=== PATIENT | male | born 1955 | race Two or more races ===

== ENCOUNTER 2024-06-02 12:37 | Emergency (ER) | payer MEDICARE, SELFPAY ==
[2024-06-02 12:53] VITALS: BP 126/67; PULSE 100; RESP 18; TEMP 37; O2SAT 97; BMI 25.8
--- NOTE | 2024-06-02 13:01 | XR_ITS ---
Examination: Foot, right, 3 views Technique: AP, oblique, lateral views foot, 3 views Date and time of exam: June 02, 2024 1325 hours INDICATIONS: Redness swelling and pain involving the right first and fifth digits 2 weeks, diabetic history FINDINGS: Soft tissue swelling and air density surrounding the proximal phalanx fifth digit Suspicious for early cortical bone destruction involving the shaft of the proximal phalanx fifth digit IMPRESSION: Early osteomyelitis proximal phalanx fifth digit, consider MRI foot without contrast follow-up
--- NOTE | 2024-06-02 13:02 | PD.EDRME ---
Rapid Medical Screening Exam RME Arrival date/time: 06/02/24 12:37 68-year-old male with past medical history diabetes hypertension and amputations presents to the emergency department reporting was sent by primary care provider for evaluation of right foot infection. Chief Complaint: Ankle/Foot Injury Vital signs: Vital Signs Temperature 98.6 F 06/02/24 12:53 Pulse Rate 100 06/02/24 12:53 Respiratory Rate 18 06/02/24 12:53 Blood Pressure 126/67 06/02/24 12:53 Pulse Oximetry (%) 97 06/02/24 12:53 Oxygen Delivery Method Room Air 06/02/24 12:53
[2024-06-02 13:27] LABS: Basophils % (Auto) 0 % (0-2.5); Eosinophils # (Auto) 0.1 Thou/mm3 (0.0-0.5); Eosinophils % (Auto) 1 % (0-10); Hematocrit 32.8 % (41.0-53.0); Hemoglobin 11.1 g/dL (13.5-16.0); Immature Granulocytes % (Auto) 0 % (0-0); Immature Granulocytes Auto 0.05 Thou/mm3 (0.00-0.00); Lymphocytes # (Auto) 1.5 Thou/mm3 (1.0-4.8); Lymphocytes % (Auto) 11 % (10-50); Mean Corpuscular HGB Conc 33.8 g/dl (31.0-37.0); Mean Corpuscular Hemoglobin 26.4 pg (25.0-35.0); Mean Corpuscular Volume 78 fL (80-100); Monocytes # (Auto) 1.1 Thou/mm3 (0.0-0.8); Monocytes % (Auto) 8 % (0-12); Neutrophils # (Auto) 11.2 Thou/mm3 (1.8-7.7); Neutrophils % (Auto) 80 % (37-80); Nucleated Red Blood Cell % 0 /100 WBC (0); Platelet Count 521 Thou/mm3 (140-440); RDW Standard Deviation 39.9 fL (35.1-43.9); Red Blood Count 4.21 Miln/mm3 (4.50-5.90)
[2024-06-02 13:46] LABS: Glucose Estimated Average 171 mg/dL (80-131); Hemoglobin A1C 7.6 % Hgb (4.8-6.0)
[2024-06-02 13:55] LABS: Alanine Aminotransferase 21 U/L (10-49); Albumin, Serum 4.5 gm/dL (3.4-4.8); Albumin/Globulin Ratio 1.2 (1.2-2.2); Alkaline Phosphatase 133 U/L (46-116); Anion Gap 6 (7-16); Aspartate Amino Transferase 14 U/L (0-34); BUN/Creatinine Ratio 13 Ratio (12-20); Bilirubin,Total 0.9 mg/dL (0.3-1.2); Blood Urea Nitrogen 12 mg/dL (9-23); Calcium 10.2 mg/dL (8.3-10.6); Calcium (Corrected) 10.2 mg/dL (8.5-10.1); Carbon Dioxide 24.1 mMol/L (20.0-31.0); Chloride 93 mMol/L (98-107); Creatinine (Component) 0.9 mg/dL (0.6-1.3); Estimated Creatinine Clearance 80.7 mL/min (>60); Globulin 3.8 gm/dL (2.3-3.5); Glucose 228 mg/dL (74-106); Osmolality,Calculated 254 (275-295); Potassium 4.3 mMol/L (3.4-5.1); Procalcitonin 0.04 ng/ml (0.0-0.49); Sodium 123 mMol/L (136-145); Total Protein 8.3 gm/dL (5.7-8.2); eGFR > 60 See Note
--- NOTE | 2024-06-02 14:14 | PD.EDANKLE ---
Lower Extremity Injury RME/HPI General Chief Complaint: Ankle/Foot Injury Stated Complaint: Right foot infection Time Seen by Provider: 06/02/24 14:02 Arrival date/time: 06/02/24 12:37 RME / HPI RME / HPI Narrative: 68-year-old male with past medical history diabetes hypertension and left BKA presents to the emergency department reporting was sent by primary care provider for evaluation of right foot infection. Patient's been having right fifth toe infection, for more than 2 weeks, already seen by PCP, already on second rounds of antibiotic, currently on cefuroxime, was sent to us by PCP for evaluation regarding gangrene to the right fifth toe. Patient also complaining of gangrene to the tip of the right great toe. No fever no other complaints noted. Related Data Home Medications ?Medication ?Instructions ?Recorded ?Confirmed amlodipine 10 mg tablet 10 mg PO QDAY 10/23/22 11/07/22 Previous Rx's ?Medication ?Instructions ?Recorded blood sugar diagnostic (Accu-Chek #100 ea 09/17/22 Guide test strips) blood-glucose meter (Moqom #1 ea 09/17/22 Glucose Monitoring System kit) lancets 28 gauge (1st Tier Unilet #100 ea 09/17/22 ComforTouch Lancet) pen needle, diabetic 31 gauge x #100 ea 09/17/2208/06 (1st Tier Unifine Pentips) metformin 1,000 mg tablet 1,000 mg PO BID 1 month #60 tabs 09/19/22 ascorbic acid (vitamin C) 250 mg 500 mg (2 x 250 mg) PO BID #60 tabs 10/27/22 tablet (Vitamin C) docusate sodium 100 mg capsule 100 mg PO BID #60 caps 10/27/22 hydrocodone 7.5 mg-acetaminophen 1 tab PO Q6H PRN pain (scale score 10/27/22 325 mg tablet 7-10) #30 tabs insulin degludec 100 unit/mL (3 10 unit (0.1 mL) subcut QDAY #15 mL 10/27/22 mL) subcutaneous pen (Tresiba FlexTouch U-100 insulin) pen needle, diabetic 32 gauge x #100 ea 10/27/22 1/ (NovoFine Plus) zinc sulfate 50 mg zinc (220 mg) 220 mg (4.4 x 50 mg zinc (220 mg)) 10/27/22 capsule PO QDAY #30 caps miscellaneous medical supply #1 ea 11/07/22 (Blood Pressure Cuff) Allergies Allergy/AdvReac Type Severity Reaction Status Date / Time No Known Allergies Allergy Verified 11/07/22 11:09 Review of Systems Review of Systems Narrative Review of Systems: Review of system reviewed and within normal limits except mentioned in HPI ED Exam Narrative Physical exam: VITAL SIGNS: Reviewed. GENERAL APPEARANCE: Alert and interactive, follows commands, no acute distress, HEAD AND FACE: Non-traumatic. ENT: PERRL, pink conjunctivitis, eyelid no trauma, Mucous membrane moist. NECK: Supple, nontender, no nuchal rigidity. CHEST: No tenderness, no crepitus, no paradoxical movement, no retractions. LUNGS: Clear, well ventilated, symmetric, no rales, no wheezing, no ronchi, no stridor, good breath sounds bilaterally. HEART: Regular rate, regular rhythm, no murmur, no gallops. ABDOMEN: Soft, positive bowel sounds, nondistended, no guarding, nontender, no rebound, no masses, RECTAL: Deferred. GENITAL: Deferred. NEUROLOGICAL: Gross motor function intact sensory function intact, Appropriate for age. MUSCULOSKELETAL: low back nontender, full range of motion. EXTREMITIES: Status post AKA, gangrene noted, dry, right great toe tip, and gangrene, dry, right 5th toe SKIN: Color pink, dry, no rash, no lacerations, no abrasions, no contusions. LYMPHATICS: Deferred. Course Quality Measures none Orders Category Date Time Status COVID-19 Screening Questionnaire NOW Care 06/02/24 14:37 Active Decision to Admit X1 Care 06/02/24 14:37 Active Consult to General Surgery Stat Cons 06/02/24 14:33 Ordered XR foot comp RT min 3V Stat Exams 06/02/24 13:01 Completed A1C [Glycohemoglobin w (eAG)] Stat Lab 06/02/24 13:14 Completed Blood Culture (Lab) Stat Lab 06/02/24 13:10 Received CBC Stat Lab 06/02/24 13:14 Completed CMP [Comprehensive Metabolic Panel] Stat Lab 06/02/24 13:14 Completed Lactate (Lactic Acid) Stat Lab 06/02/24 13:14 Completed Procalcitonin Stat Lab 06/02/24 13:14 Completed Piper/Tazo 3.375 gm [Zosyn] Med 06/02/24 14:32 Active 3.375 gm in 50 ml IV X1 Vancomycin Inj 1,000 mg Med 06/02/24 14:32 Active Sodium Chloride 0.9% 250 ml [Ns] 250 ml IV X1 Vital Signs Vital signs: Vital Signs Temperature 98.6 F 06/02/24 12:53 Pulse Rate 100 06/02/24 12:53 Respiratory Rate 18 06/02/24 12:53 Blood Pressure 126/67 06/02/24 12:53 Pulse Oximetry (%) 97 06/02/24 12:53 Oxygen Delivery Method Room Air 06/02/24 12:53 Extremity Injury, Lower MDM Narrative MDM Narrative:: X-ray of the right foot showed osteomyelitis fifth toe, clinically patient is already have diagnosed with gangrene of the fifth toe, and gangrene/necrosis right great toetip. Case discussed with general surgeon, Dr. Rico, and told me to asked the hospitalist to admit for further management. Plan of care discussed with the patient and family, and agrees to be admitted. Patient data External records reviewed:: [facility] previous records Clinical information provided by:: patient and family Social determinants that could affect healthcare access:: none Patient has the following chronic illnesses:: Diabetes mellitus, hypertension How is presenting disease/condition affected by chronic disease/condition?: exacerbated by Evaluation data The following diagnostics were reviewed and interpreted by me:: lab results and radiology exam(s) Lab and/or radiology exams considered but not ordered:: none Interpretation Summary: Laboratory workup significant for 14,000 leukocytosis. X-ray of the foot showed osteomyelitis fifth toe Medications / Prescriptions Medications or Prescriptions considered but not ordered:: None Medication administrations:: Medication Administration History Piperacillin/Tazobactam/Dextrose (Zosyn) 3.375 gm in 50 mls @ 100 mls/hr IV X1 ONE Stop: 06/02/24 15:01 Vancomycin HCl 1,000 mg/ (Sodium Chloride) 250 mls @ 150 mls/hr IV X1 ONE Stop: 06/02/24 16:11 IV Zosyn and IV Vanco Consultations Consultation(s) initiated? (list below): Yes Consultation #1 (Physician, Specialty, Details): Spoke with Dr. Rico, general surgeon on-call, discussed the case, and thank you Dr. Rico for accepting the patient Diagnosis Extremity Injury, Lower Differential Diagnosis: other (Gangrene, foot, diabetic foot toe gangrene, cellulitis) Most likely diagnosis given after review of the tests above:: Diabetic toe gangrene Admission Indicated Admission indicated?: indicated Explain why admission is indicated or not indicated:: Patient is to be admitted for further management. Admission Request Was there a request for admission?: Yes Admission Attestation Admission request attestation: Discussed case with [Dr Trevino] from Hospitalist service regarding admission. Discussed patients ED course, exam findings, labs, and radiology results. The Hospitalist [agrees,] to accept the patient for admission. Disposition Plan Disposition Plan: Admit Discharge Plan Prescriptions/Referrals Prescriptions/Med Rec: No Action (DME) Blood Pressure Cuff Misc See Rx Instructions .Route Qty: 1 0RF Rx Instructions: As directed (DME) pen needle, diabetic [1st Tier Unifine Pentips] 31 gauge x 1/4 needle See Rx Instructions .Route Qty: 100 3RF Rx Instructions: As directed (DME) blood-glucose meter [[employer]ouch Glucose Monitoring] Kit See Rx Instructions .Route Qty: 1 0RF Rx Instructions: As directed (DME) lancets [1st Tier Unilet ComforTouch] 28 gauge misc See Rx Instructions .Route Qty: 100 2RF Rx Instructions: As directed (DME) Accu-Chek Guide test strips Strip See Rx Instructions .Route Qty: 100 2RF Rx Instructions: As directed metformin 1,000 mg tablet 1,000 mg PO BID 30 Days Qty: 60 2RF Rx Instructions: Start after finishing first two weeks. amlodipine 10 mg Tablet 10 mg PO QDAY Rx Instructions: amlodipine besylate ascorbic acid (vitamin C) [Vitamin C] 250 mg Tablet 500 mg PO BID Qty: 60 0RF docusate sodium 100 mg Capsule 100 mg PO BID Qty: 60 0RF zinc sulfate 50 mg zinc (220 mg) Capsule 220 mg PO QDAY Qty: 30 0RF hydrocodone-acetaminophen 7.5-325 mg tablet 1 tab PO Q6H MDD 4 PRN (Reason: pain (scale score 7-10)) Qty: 30 0RF insulin degludec [Tresiba FlexTouch U-100] 100 unit/mL (3 mL) insulin pen 10 unit subcut QDAY Qty: 15 0RF (DME) NovoFine Plus 32 gauge x 1/6 needle See Rx Instructions .Route Qty: 100 0RF Rx Instructions: As directed Referrals: Austin Morrison MD [Primary Care Provider] - In 1 week Problem List Clinical Impression: Diabetic infection of right foot Patient/Caregiver Discharge Instructions Print Language: Czech
--- NOTE | 2024-06-02 14:49 | XR_ITS ---
Examination: CTA abdominal aorta iliofemoral runoff. 2-D sagittal coronal reconstructions. 3-D reconstructions, vascular Exam date and time: June 02, 2024 1609 hours INDICATIONS: Right foot fifth digit infection beginning 2 weeks ago, early osteomyelitis proximal phalanx fifth digit on plain films right foot today Technique: Multiple CTA images of the abdominal aorta iliofemoral runoff arterial vessels, 2.0 mm slice thickness, post intravenous administration 130 cc [id number] 2-D sagittal coronal reconstructions. 3-D reconstructions, vascular 3-D postprocessing, including vascular maximum intensity projection images, 3-D volume rendering Low dose protocols were performed. One or more of the following dose reduction techniques were used; automated exposure control, adjustment of the mA and/or KV according to patient size, use of iterative reconstruction technique. Findings: Mild enlargement cardiac contour No focal liver or splenic lesion No gallstones No pancreatic or adrenal mass No renal or ureteral calculi, hydronephrosis No bowel obstruction Normal appendix No diverticulitis Urinary bladder intact Transverse prostate dimension 4.2 cm Heavy abdominal aortic calcification no aneurysmal dilatation 30% stenosis origin celiac axis 30% stenosis origin superior mesenteric axis Renal arteries appear intact Heavy calcification external iliac arteries which are intact 70% stenosis right common femoral artery and origin right superficial femoral artery axial image 237 with chronic mural thrombus, transverse dimension right common femoral artery 16mm. Heavy calcification right superficial femoral artery, multiple areas of stenoses, including 90% stenosis mid right superficial femoral artery axial image 346 80% stenosis distal right superficial femoral artery image 405, 70% stenosis axial image 413 Popliteal artery is heavily calcified and severely attenuated Occlusion short segment of the proximal right anterior tibial artery and multiple short segment high-grade stenoses and occlusions Distal right anterior tibial artery Main continuation trunk is severely attenuated 90% stenosis origin right posterior tibial artery which does fill distally to the ankle Left common femoral artery 70% stenosis 60% stenosis proximal left superficial femoral artery, 80% stenosis mid left superficial femoral artery image 320 which extends over a 15 mm distance 90% stenosis mid left superficial femoral artery and multiple 90% stenoses distal left superficial femoral artery Attenuated popliteal artery Multiple occlusions proximal left anterior and posterior tibial arteries to the amputation stump IMPRESSION: Multiple high-grade stenoses superficial femoral arteries Multiple occlusions and significant stenoses right anterior tibial right posterior tibial artery Multiple occlusions proximal left anterior tibial posterior tibial arteries
--- NOTE | 2024-06-02 14:51 | EVENTNT_ITS ---
<Statement entered by Miguel Malave MD - 06/07/24 09:04> Attending attestation: I reviewed above note and agree with findings and plans. I have also personally examined the patient with medicine team and went over assessment and plan with medical team including corporate communications intern and resident physician. Documentation for date of: 06/02/24 Event Note Event Note: ED physician,Brittany called for admission at 14:35. He reported that patient is a 68-year-old male with past medical history of diabetes on insulin, hypertension, left below-knee amputation and severe peripheral arterial disease presented from primary care provider for evaluation of right foot infection fifth toe from last 2 weeks and was taking cefuroxime which is his second round of antibiotics. Patient was sent out by PCP for evaluation regarding gangrene to right fifth toe. No fevers documented. General surgery, Dr. Rico was consulted by ED physician and we spoke to Dr Rico about the patient and she recommended to have cardiovascular surgeon consultation/evaluation for which patient will need transfer given the fact we have nonavailability of cardiovascular surgeon and patient has severe peripheral arterial disease seen on CT abdomen from chart review 09/15/2022 showing Bilateral significant superficial femoral artery stenoses as above.70% stenosis distal right popliteal artery. Severely attenuated right posterior tibial artery. 80% stenosis distal left popliteal artery. Foot x-ray was taken today showed early osteomyelitis proximal phalanx fifth digit with soft tissue swelling and air density surrounding proximal phalanx fifth digit. Patient was given IV vancomycin and Zosyn and blood cultures were sent. Patient was not septic was found to have leukocytosis, normocytic anemia, thrombocytosis, corrected sodium 126, A1c 7.6%. ED physician was informed that we will hold admission and recommends to consult cardiovascular surgeon for possible transfer and reevaluate PAD after doing CTA abdomen ileofemoral.ED Physcian was agreeable with the plan. Patient was discussed with attending physician, Dr. Ananda Waller MD, PGY 2 Internal medicine
[2024-06-02 15:45] VITALS: BP 156/73; PULSE 99; RESP 19; TEMP 37.2; O2SAT 96
--- NOTE | 2024-06-02 16:05 | PC.NURSE ---
patient to CT via [employer]ador with fifth grade teacher.
[2024-06-02] MEDS: PIPER/TAZO 3.375 GM 3.375 GM/50 ML BAG IV (16:34)
[2024-06-02] MEDS: ONDANSETRON INJ 2 MG/ML INJ 2 ML 4 MG IV (16:52)
[2024-06-02] MEDS: Vancomycin Inj 1,000 MG in SODIUM CHLORIDE 0.9% 250 ML 250 ML 150 MG IV (17:15)
[2024-06-02 17:33] VITALS: BP 117/85; PULSE 99; RESP 18; TEMP 37.1; O2SAT 97
--- NOTE | 2024-06-02 17:50 | PD.RESEVENT ---
Documentation for date of: 06/02/24 Event Note Event Note: Got call from ED for admission but CTA shows severe stenosis of the proximal femoral arteries. We spoke with Dr. Rico which recommended patient be transferred for vascular surgery. We believe at this time surgery alone would not allow proper healing of amputated foot as proximal arteries have severe stenosis. Dr. Mena made aware and spoke with Dr. Rico which agreed for transfer. ED will try to transfer patient for vascular surgery prior to amputation. Case discussed with attending physician Dr. Trina Giang MD PGY3.
--- NOTE | 2024-06-02 17:57 | EDNOTE_ITS ---
Lower Extremity Injury RME/HPI General Chief Complaint: Ankle/Foot Injury Stated Complaint: Right foot infection Time Seen by Provider: 06/02/24 14:02 Arrival date/time: 06/02/24 12:37 RME / HPI RME / HPI Narrative: 68-year-old male with past medical history diabetes hypertension and left BKA presents to the emergency department reporting was sent by primary care provider for evaluation of right foot infection. Patient's been having right fifth toe infection, for more than 2 weeks, already seen by PCP, already on second rounds of antibiotic, currently on cefuroxime, was sent to us by PCP for evaluation regarding gangrene to the right fifth toe. Patient also complaining of gangrene to the tip of the right great toe. No fever no other complaints noted. Related Data Home Medications ?Medication ?Instructions ?Recorded ?Confirmed amlodipine 10 mg tablet 10 mg PO QDAY 10/23/22 11/07/22 Previous Rx's ?Medication ?Instructions ?Recorded blood sugar diagnostic (Accu-Chek #100 ea 09/17/22 Guide test strips) blood-glucose meter (DevelopIntelligence #1 ea 09/17/22 Glucose Monitoring System kit) lancets 28 gauge (1st Tier Unilet #100 ea 09/17/22 ComforTouch Lancet) pen needle, diabetic 31 gauge x #100 ea 09/17/2208/06 (1st Tier Unifine Pentips) metformin 1,000 mg tablet 1,000 mg PO BID 1 month #60 tabs 09/19/22 ascorbic acid (vitamin C) 250 mg 500 mg (2 x 250 mg) PO BID #60 tabs 10/27/22 tablet (Vitamin C) docusate sodium 100 mg capsule 100 mg PO BID #60 caps 10/27/22 hydrocodone 7.5 mg-acetaminophen 1 tab PO Q6H PRN pain (scale score 10/27/22 325 mg tablet 7-10) #30 tabs insulin degludec 100 unit/mL (3 10 unit (0.1 mL) subcut QDAY #15 mL 10/27/22 mL) subcutaneous pen (Tresiba FlexTouch U-100 insulin) pen needle, diabetic 32 gauge x #100 ea 10/27/22 1/ (NovoFine Plus) zinc sulfate 50 mg zinc (220 mg) 220 mg (4.4 x 50 mg zinc (220 mg)) 10/27/22 capsule PO QDAY #30 caps miscellaneous medical supply #1 ea 11/07/22 (Blood Pressure Cuff) Allergies Allergy/AdvReac Type Severity Reaction Status Date / Time No Known Allergies Allergy Verified 11/07/22 11:09 Review of Systems Review of Systems Narrative Review of Systems: Review of system reviewed and within normal limits except mentioned in HPI ED Exam Narrative Physical exam: VITAL SIGNS: Reviewed. GENERAL APPEARANCE: Alert and interactive, follows commands, no acute distress, HEAD AND FACE: Non-traumatic. ENT: PERRL, pink conjunctivitis, eyelid no trauma, Mucous membrane moist. NECK: Supple, nontender, no nuchal rigidity. CHEST: No tenderness, no crepitus, no paradoxical movement, no retractions. LUNGS: Clear, well ventilated, symmetric, no rales, no wheezing, no ronchi, no stridor, good breath sounds bilaterally. HEART: Regular rate, regular rhythm, no murmur, no gallops. ABDOMEN: Soft, positive bowel sounds, nondistended, no guarding, nontender, no rebound, no masses, RECTAL: Deferred. GENITAL: Deferred. NEUROLOGICAL: Gross motor function intact sensory function intact, Appropriate for age. MUSCULOSKELETAL: low back nontender, full range of motion. EXTREMITIES: Nontender,. Status post below-knee amputation of the left, dry gangrene noted on the right 5th toe and gangrene to the tip of the big toe SKIN: Color pink, dry, no rash, no lacerations, no abrasions, no contusions. LYMPHATICS: Deferred. Course Quality Measures none Orders Category Date Time Status COVID-19 Screening Questionnaire NOW Care 06/02/24 14:[address] Screening NOW Care 06/02/24 14:[address] angio abd ilio fem runoff Stat Exams 06/02/24 14:49 Completed XR foot comp RT min 3V Stat Exams 06/02/24 13:01 Completed A1C [Glycohemoglobin w (eAG)] Stat Lab 06/02/24 13:14 Completed Blood Culture (Lab) Stat Lab 06/02/24 13:10 Received CBC Stat Lab 06/02/24 13:14 Completed CMP [Comprehensive Metabolic Panel] Stat Lab 06/02/24 13:14 Completed Lactate (Lactic Acid) Stat Lab 06/02/24 13:14 Completed Procalcitonin Stat Lab 06/02/24 13:14 Completed Ondansetron Inj [Zofran Inj] Med 06/02/24 16:47 Discontinued 4 mg IV X1 ONE Piper/Tazo 3.375 gm [Zosyn] Med 06/02/24 14:32 Discontinued 3.375 gm in 50 ml IV X1 Vancomycin Inj 1,000 mg Med 06/02/24 14:32 Discontinued Sodium Chloride 0.9% 250 ml [Ns] 250 ml IV X1 Vital Signs Vital signs: Vital Signs Temperature 98.6 F 06/02/24 12:53 Pulse Rate 100 06/02/24 12:53 Respiratory Rate 18 06/02/24 12:53 Blood Pressure 126/67 06/02/24 12:53 Pulse Oximetry (%) 97 06/02/24 12:53 Oxygen Delivery Method Room Air 06/02/24 12:53 Extremity Injury, Lower MDM Narrative MDM Narrative:: Case discussed with Dr. Bright, general surgeon on-call, who recommends admission however the hospitalist told me that patient is to be transferred for vascular regarding multiple stenosis noted on the right lower extremity. We attempted to call vascular surgeon, Dr. Villagomez, who is not on-call, however there is no response. Plan of care discussed with the patient, and the patient decided to go home AGAINST MEDICAL ADVICE. Patient data External records reviewed:: None Clinical information provided by:: none Social determinants that could affect healthcare access:: none Patient has the following chronic illnesses:: Diabetes mellitus hypertension How is presenting disease/condition affected by chronic disease/condition?: exacerbated by Evaluation data The following diagnostics were reviewed and interpreted by me:: lab results and radiology exam(s) Lab and/or radiology exams considered but not ordered:: None Interpretation Summary: CBC showed leukocytosis of 14,000, the rest of the labs unremarkable. She had 4 blood sugar of 228, hemoglobin A1c of 7.6 CT of the abdomen and pelvis with femoral runoff showed Multiple high-grade stenoses superficial femoral arteries Multiple occlusions and significant stenoses right anterior tibial right posterior tibial artery Multiple occlusions proximal left anterior tibial posterior tibial arteries Medications / Prescriptions Medications or Prescriptions considered but not ordered:: None Medication administrations:: Medication Administration History Discontinued Medications Piperacillin/Tazobactam/Dextrose (Zosyn) 3.375 gm in 50 mls @ 100 mls/hr IV X1 ONE Stop: 06/02/24 15:01 Last Infusion: 06/02/24 17:04 Dose: Infused Documented By: Admin: 06/02/24 16:34 Dose: 100 mls/hr Documented By: SONG Vancomycin HCl 1,000 mg/ (Sodium Chloride) 250 mls @ 150 mls/hr IV X1 ONE Stop: 06/02/24 16:11 Last Infusion: 06/02/24 19:05 Dose: Infused Documented By: Admin: 06/02/24 17:15 Dose: 150 mls/hr Documented By: SONG Ondansetron HCl (Ondansetron Inj 2 Mg/Ml Inj 2 Ml) 4 mg IV X1 ONE; Protocol Stop: 06/02/24 16:48 Last Admin: 06/02/24 16:52 Dose: 4 mg Documented By: SONG IV vancomycin and Zosyn Consultations Consultation(s) initiated? (list below): Yes Consultation #1 (Physician, Specialty, Details): Spoke with Dr. Rico, general surgeon on-call, and told me that okay to admit the patient however the hospitalist told me that patient is to be transferred. Diagnosis Extremity Injury, Lower Differential Diagnosis: other (Diabetic toe infection, diabetic toe and gangrene, peripheral arterial disease) Most likely diagnosis given after review of the tests above:: Diabetic toe infection Admission Indicated Admission indicated?: indicated (Patient AMA) Admission Request Was there a request for admission?: No Disposition Plan Disposition Plan: other (specify) Discharge Plan Plan Patient Disposition: Left Against Medical Advice Prescriptions/Referrals Prescriptions/Med Rec: No Action (DME) Blood Pressure Cuff Misc See Rx Instructions .Route Qty: 1 0RF Rx Instructions: As directed (DME) pen needle, diabetic [1st Tier Unifine Pentips] 31 gauge x 1/4 needle See Rx Instructions .Route Qty: 100 3RF Rx Instructions: As directed (DME) blood-glucose meter [CareTouch Glucose Monitoring] Kit See Rx Instructions .Route Qty: 1 0RF Rx Instructions: As directed (DME) lancets [1st Tier Unilet ComforTouch] 28 gauge misc See Rx Instructions .Route Qty: 100 2RF Rx Instructions: As directed (DME) Accu-Chek Guide test strips Strip See Rx Instructions .Route Qty: 100 2RF Rx Instructions: As directed metformin 1,000 mg tablet 1,000 mg PO BID 30 Days Qty: 60 2RF Rx Instructions: Start after finishing first two weeks. amlodipine 10 mg Tablet 10 mg PO QDAY Rx Instructions: amlodipine besylate ascorbic acid (vitamin C) [Vitamin C] 250 mg Tablet 500 mg PO BID Qty: 60 0RF docusate sodium 100 mg Capsule 100 mg PO BID Qty: 60 0RF zinc sulfate 50 mg zinc (220 mg) Capsule 220 mg PO QDAY Qty: 30 0RF hydrocodone-acetaminophen 7.5-325 mg tablet 1 tab PO Q6H MDD 4 PRN (Reason: pain (scale score 7-10)) Qty: 30 0RF insulin degludec [Tresiba FlexTouch U-100] 100 unit/mL (3 mL) insulin pen 10 unit subcut QDAY Qty: 15 0RF (DME) NovoFine Plus 32 gauge x 1/6 needle See Rx Instructions .Route Qty: 100 0RF Rx Instructions: As directed Referrals: Austin Morrison MD [Primary Care Provider] - In 1 week Problem List Clinical Impression: Diabetic infection of right foot Patient/Caregiver Discharge Instructions Print Language: Syriac
== END 2024-06-02 19:12 | disposition left against medical advice (07) ==
LOC: SERX 13:21
PROVIDERS: Emergency Provider Emergency Medicine; PCP Family Medicine
DX: E11.69 Type 2 diabetes mellitus with other specified complication (principal); M86.8X7 Other osteomyelitis, ankle and foot; E11.51 Type 2 diabetes mellitus with diabetic peripheral angiopathy without gangrene; I77.1 Stricture of artery; Z79.84 Long term (current) use of oral hypoglycemic drugs; Z79.4 Long term (current) use of insulin; Z53.29 Procedure and treatment not carried out because of patient's decision for other reasons
CPT/HCPCS: 36415; 73630; 75635; 80053; 83036; 83605; 84145; 85025; 87040; 96365; 96366; 96367; 96375; 99285; A4649; J2405; J2543; J3370; J7050; Q9967